=== PATIENT | male | born 2000 | race Hispanic/Latino ===

== ENCOUNTER 2019-03-26 22:28 | Emergency (ER) | payer MEDICAID, OTHER ==
[~2019-03-26 22:28] MED LIST: ALBU8.5H3 IH; ALBU8.5H8 IH; LISD20CA PO; MOME13HF2 IH; PARO-66 PO; SYMBI IH; [UNRECOGNIZED DRUG - CODE] PO
== END 2019-03-27 00:23 | disposition home or self-care (01) ==
LOC: EDH 22:28
DX: S30.811A Abrasion of abdominal wall, initial encounter (principal); J45.909 Unspecified asthma, uncomplicated; F90.9 Attention-deficit hyperactivity disorder, unspecified type; Z98.890 Other specified postprocedural states; X58.XXXA Exposure to other specified factors, initial encounter; Y93.02 Activity, running; Y92.89 Other specified places as the place of occurrence of the external cause; Y99.8 Other external cause status
CPT/HCPCS: 99281

== ENCOUNTER 2020-03-22 02:12 | Emergency (ER) | payer OTHER ==
[2020-03-22] MEDS ORDERED: TETRACAINE HCL 0.5% 4 ML OPHTH SOLN ONE (02:20)
[2020-03-22] MEDS ORDERED: FLUORESCEIN SODIUM 1 STRIP STRIP ONE (02:26)
== END 2020-03-22 02:42 | disposition home or self-care (01) ==
LOC: EDH 02:12
DX: T15.11XA Foreign body in conjunctival sac, right eye, initial encounter (principal); J45.909 Unspecified asthma, uncomplicated; F90.9 Attention-deficit hyperactivity disorder, unspecified type; X58.XXXA Exposure to other specified factors, initial encounter; Y93.89 Activity, other specified; Y92.89 Other specified places as the place of occurrence of the external cause; Y99.8 Other external cause status